=== PATIENT | female | born 1945 | race Hispanic/Latino ===

== ENCOUNTER → 2021-06-12 | Day surgery (SDC) | payer MEDICARE ==
[2021-06-08 10:38] LABS: BASOPHILS # (AUTO) 0.1 (0.0-0.1); BASOPHILS % 1.1 % (0.0-1.0); EOSINOPHILS # (AUTO) 0.3 (0.0-0.4); EOSINOPHILS % 4.6 % (0.0-6.0); HEMATOCRIT 43.1 % (34.2-44.1); HEMOGLOBIN 13.7 g/dL (12.0-16.0); LYMPHOCYTES # (AUTO) 1.9 (1.0-3.2); LYMPHOCYTES % 25.6 % (18.0-39.1); MEAN CORPUSCULAR HEMOGLOBIN 29.3 pg (28-32); MEAN CORPUSCULAR HGB CONC 31.8 g/dL (31-35); MEAN CORPUSCULAR VOLUME 92.1 fL (81-99); MONOCYTES # (AUTO) 0.7 (0.2-0.8); MONOCYTES % 8.7 % (4.4-11.3); NEUTROPHILS # (AUTO) 4.4 (2.1-6.9); NEUTROPHILS % 59.3 % (38.7-80.0); PLATELET COUNT 323 x10e3/uL (140-360); RED BLOOD COUNT 4.68 x10e6/uL (3.6-5.1); RED CELL DISTRIBUTION WIDTH 14.1 % (11.7-14.4)
[2021-06-08 11:21] LABS: INR 0.9; PROTHROMBIN TIME 12.9 seconds (11.9-14.5)
[2021-06-08 11:22] LABS: PARTIAL THROMBOPLASTIN TIME 27.6 seconds (23.8-35.5)
[2021-06-08 11:31] LABS: ALBUMIN 3.7 g/dL (3.5-5.0); ALBUMIN/GLOBULIN RATIO 1.2 (0.8-2.0); ANION GAP 11.1 mmol/L (8-16); CALCIUM 9.9 mg/dL (8.4-10.2); CHOL/HDL RATIO 3.6 (3.0-3.6); CREATININE, SERUM 0.87 mg/dL (0.57-1.11); POTASSIUM 5.1 mmol/L (3.5-5.1)
[~2021-06-12] VITALS: Ht 154.9 cm; Wt 90.7 kg
[~2021-06-12] MED LIST: ACTONEL35 MG PO; ADVIL200 MG PO; ALDACTONE25 MG PO; AMLODIPINE BESYL5 MG PO; LASIX20 MG PO; LIDOCAINE 1% W/EPINEPHRINE 20 ML VIAL ONE; LISINOPRIL10 MG PO; LOSARTAN PO; MELOXICAM7.5 MG PO; METFORMIN HCL500 MG PO; PANTOPRAZOLE SO40 MG PO; PRAVASTATIN SOD20 MG PO; SOTALOL80 MG PO; TYLENOL ARTHRITIS PO; ULTRAM 50MG50 MG PO; ZANTAC150 MG PO
[2021-06-12 08:00] VITALS: BP 138/67
[2021-06-12 09:10] VITALS: BP 144/67
[2021-06-12 09:25] VITALS: BP 157/74
[2021-06-12 09:35] VITALS: BP 151/74
== END | disposition home or self-care (01) ==
LOC: CATH LAB 07:39
PROVIDERS: ATTEND Internal Medicine Cardiovascular Disease
DX: R00.2 Palpitations (principal); I47.1 Supraventricular tachycardia; I10 Essential (primary) hypertension; E11.8 Type 2 diabetes mellitus with unspecified complications; E78.5 Hyperlipidemia, unspecified; G51.0 Bell's palsy; Z01.812 Encounter for preprocedural laboratory examination; Z20.822 Contact with and (suspected) exposure to COVID-19; Z79.84 Long term (current) use of oral hypoglycemic drugs
CPT/HCPCS: 33285; 36415; 80053; 80061; 85025; 85610; 85730; C1764; U0002

== ENCOUNTER 2023-08-29 17:13 | Emergency (ER) | payer MEDICARE ==
[~2023-08-29] VITALS: Ht 154.9 cm; Wt 90.7 kg
[~2023-08-29 17:13] MED LIST changes: -LIDOCAINE 1% W/EPINEPHRINE 20 ML VIAL ONE
[2023-08-29 21:10] VITALS: O2SAT 98
== END 2023-08-29 21:21 | disposition home or self-care (01) ==
LOC: ER 17:24
DX: M25.551 Pain in right hip (principal); G89.29 Other chronic pain; W19.XXXA Unspecified fall, initial encounter; I10 Essential (primary) hypertension; E11.9 Type 2 diabetes mellitus without complications; E78.5 Hyperlipidemia, unspecified
CPT/HCPCS: 70450; 72125; 72131; 99283